=== PATIENT | female | born 1980 | race Caucasian/White ===

== ENCOUNTER 2019-02-16 17:28 | Inpatient (IN) | payer SELFPAY ==
[~2019-02-16] VITALS: Ht 158.8 cm; Wt 79.4 kg
[2019-02-16 17:59] VITALS: BP 163/78
[2019-02-16] MEDS ORDERED: IV RINGERS,LACTATED 1000ML 1,000 ML IV PRN (18:15)
[2019-02-16 18:23] LABS: BILIRUBIN,URINE NEGATIVE (NEG); CLARITY,URINE CLEAR; COLOR,URINE YELLOW; NITRITE,URINE NEGATIVE (NEG); PH,URINE 6.5; PROTEIN,URINE NEGATIVE (NEG-TRACE); UROBILINOGEN,URINE 0.2 mg/dL (0.2 mg/dL)
[2019-02-16 18:28] LABS: AMPHETAMINE/METHAMPHETAMINE NEG (NEG); BARBITURATES NEG (NEG); BENZODIAZEPINES NEG (NEG); CANNABINOIDS NEG (NEG); COCAINE NEG (NEG); METHADONE NEG (NEG); OPIATES NEG (NEG); PHENCYCLIDINE NEG (NEG)
[2019-02-16 18:37] LABS: BACTERIA,URINE MANY /HPF (0-FEW); RBC,URINE OCC /HPF (0-2); SQUAMOUS EPITHELIAL CELL,UR MANY /LPF
[2019-02-16] MEDS ORDERED: IV RINGERS,LACTATED 1000ML 1,000 ML IV SCH (20:14)
[2019-02-16] MEDS ORDERED: ONDANSETRON PF 4 MG/2 ML VIAL. IV PRN (20:15)
[2019-02-16 21:09] LABS: BASO # 0.1 x10^3/uL (0.0-0.2); BASO % 1 % (0-3); EOS # 0.1 x10^3/uL (0.0-0.7); EOS % 1 % (0-3); HEMATOCRIT 34.2 % (36.0-47.0); HEMOGLOBIN 11.7 g/dL (12.0-15.5); LYMPH # 2.5 x10^3/uL (1.0-4.8); LYMPH % 20 % (24-48); MEAN CORPUSCULAR HEMOGLOBIN 30 pg (25-35); MEAN CORPUSCULAR HGB CONC 34 g/dL (31-37); MEAN CORPUSCULAR VOLUME 88 fL (79-100); MONO # 0.8 x10^3/uL (0.0-1.1); MONO % 7 % (0-9); NEUT % 72 % (31-73); PLATELET COUNT 292 x10^3/uL (140-400); RED BLOOD COUNT 3.89 x10^6/uL (3.50-5.40); RED CELL DISTRIBUTION WIDTH 15.1 % (11.5-14.5); WHITE BLOOD COUNT 12.6 x10^3/uL (4.0-11.0)
[2019-02-16] MEDS ORDERED: CALCIUM CARBONATE 500 MG TAB.CHEW PO PRN (21:15)
[2019-02-16 21:19] LABS: MAGNESIUM 1.3 mg/dL (1.8-2.4); URIC ACID 5.8 mg/dL (2.6-6.0)
[2019-02-16 21:22] LABS: ALBUMIN 2.7 g/dL (3.4-5.0); ALBUMIN/GLOBULIN RATIO 0.5 (1.0-1.7); CREATININE 1.1 mg/dL (0.6-1.0); GFR 55.3; TOTAL BILIRUBIN 0.3 mg/dL (0.2-1.0)
[2019-02-16 21:25] LABS: CALCIUM 12.4 mg/dL (8.5-10.1); POTASSIUM 2.6 mmol/L (3.5-5.1)
--- NOTE | 2019-02-16 21:53 | RAD ---
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 Comparisons: None FINDINGS: Cervix measures 4.4 cm in length. Placenta is fundal and appears normal. There is a single live intrauterine gestation with heart rate measured at 139 bpm. measurements as follows: BPD: 5.4 cm corresponding to 22 weeks 2 days Head circumference: 20.3 cm corresponding to 22 weeks 3 days Abdominal circumference: 16.4 cm corresponding to 21 weeks 6 days Femur length: 3.2 cm corresponding to 21 weeks 1 day. Gestational age by sonogram 21 weeks 5 days. KOBE measured at 6.8 cm. IMPRESSION: 1. Single live intrauterine gestation measuring 21 weeks 5 days by today's ultrasound. Correlate with LMP. Dedicated survey in the nonemergent setting is recommended. 2. Cervix is long and closed. 3. Placenta has a normal appearance. Electronically signed by: Rena De Guzman MD (02/16/2019 9:50 PM) [facility]
[2019-02-16] MEDS: MAGNESIUM CHLORIDE ER 64 MG TABLET.ER PO SCH (22:52)
[2019-02-17] MEDS ORDERED: MAG HYDROX/ALUMINUM HYD/SIMETH 30 ML ORAL.SUSP ONE (02:15)
[2019-02-17] MEDS: MAG HYDROX/ALUMINUM HYD/SIMETH 30 ML ORAL.SUSP PO PRN ×8 (02:16→23:04)
[2019-02-17] MEDS: MAGNESIUM CHLORIDE ER 64 MG TABLET.ER PO SCH (09:07)
[2019-02-17 10:00] LABS: ALBUMIN 2.3 g/dL (3.4-5.0); ALBUMIN/GLOBULIN RATIO 0.5 (1.0-1.7); CALCIUM 10.4 mg/dL (8.5-10.1); CREATININE 0.9 mg/dL (0.6-1.0); GFR 69.7; TOTAL BILIRUBIN 0.2 mg/dL (0.2-1.0); TOTAL PROTEIN 7.1 g/dL (6.4-8.2)
[2019-02-17 10:03] LABS: POTASSIUM 2.7 mmol/L (3.5-5.1)
[2019-02-17] MEDS: ACETAMINOPHEN 325 MG TABLET. PO PRN ×2 (10:35→21:25)
[2019-02-17] MEDS ORDERED: POTASSIUM CHLORIDE 20 MEQ TABLET.ER. PO ONE (14:30)
[2019-02-17 15:21] LABS: CREATININE,RANDOM URINE 47.1 mg/dL (Not Establ.)
[2019-02-17] MEDS ORDERED: PNV1TABL25 PO (17:12)
[2019-02-18] MEDS: MAG HYDROX/ALUMINUM HYD/SIMETH 30 ML ORAL.SUSP PO PRN (01:48)
[2019-02-18 05:09] LABS: ALBUMIN 2.1 g/dL (3.4-5.0); ALBUMIN/GLOBULIN RATIO 0.5 (1.0-1.7); CALCIUM 8.7 mg/dL (8.5-10.1); CREATININE 0.8 mg/dL (0.6-1.0); GFR 79.9; POTASSIUM 3.5 mmol/L (3.5-5.1); TOTAL BILIRUBIN 0.1 mg/dL (0.2-1.0); TOTAL PROTEIN 6.5 g/dL (6.4-8.2)
--- NOTE | 2019-02-18 08:15 | PDOC3 ---
OB DISCHARGE SUMMARY DATE OF ADMISSION: 02/16/19 DATE OF DISCHARGE: 02/18/19 REASON FOR ADMISSION: Observation/evaluation PROCEDURES: Ultrasound INTRAPARTUM PROCEDURES: Others (Electrlyte replacement) PROCEDURES: None OPERATIONS: None DISCHARGE INFORMATION: Activity, Diet HOSPITAL COURSE Unremarkable CONDITION AT DISCHARGE Stable KEITH MUNROE MD Feb 18, 2019 08:15
[2019-02-18] MEDS: MAGNESIUM CHLORIDE ER 64 MG TABLET.ER PO SCH (08:47)
[2019-02-18] MEDS ORDERED: POTASSIUM CHLORIDE 20 MEQ TABLET.ER. PO ONE (09:00)
--- NOTE | 2019-02-19 13:29 | PDOC1 ---
OB - History Hx of Present Care: None Ultrasounds: Normal mid trimester US Obstetrical Complications: None Medical Complications: None Past Family/Social History * Past Medical, Surgical, Family and Obstetric Histories reviewed from chart. Blood Type: Unknown Rubella: Immune RPR/VDRL: Negative HBsAG: Negative OB - Chief Complaint & HPI Date of Admission: Date of Admission: Feb 16, 2019 at 17:28 Chief Complaint/History : 6 Para: 5 EGA: 03/09 Reason for admission: observation Admission Nurse Assessment Rev: Yes OB - Admission Exam Physical Exam Vitals: VS - Last 72 Hours, by Label Date Time Temp Pulse Resp B/P (MAP) Pulse Ox O2 Delivery O2 Flow Rate FiO2 02/16/19 17:59 98.7 88 18 163/78 (106) Room Air 98.7 HEENT: Normal, Nasal Mucosa Normal, Oropharynx Normal, Moist Membranes, Fontanelles Normal Heart: Regular Rate Lungs: Clear, Equal Abdomen: Gravid Extremities: Normal Pulses, No tenderness or swelling Reflexes: Normal Cervical Dilatation: None Station: Ballot[place] Heart Rate: Normal Assessment/Plan Assessment/Plan 03/09 IUP Electrolyte imblance IVF Correction KEITH MUNROE MD Feb 19, 2019 13:29
== END 2019-02-18 10:10 | disposition home or self-care (01) | DRG 833 ==
LOC: OBSVTOIN 17:28 → 3 SO LND 17:28
PROVIDERS: ADMIT Specialist; ATTEND Specialist
DX: O99.282 Endocrine, nutritional and metabolic diseases complicating pregnancy, second trimester (principal); Z3A.21 21 weeks gestation of pregnancy; E87.8 Other disorders of electrolyte and fluid balance, not elsewhere classified
CPT/HCPCS: 36415; 76805; 80053; 80307; 81001; 82570; 83735; 84156; 84443; 84550; 85025; 86592; 86703; 86762; 86850; 86900; 86901; 87086; 87340; J7120; G0378